=== PATIENT | male | born 1980 | race Caucasian/White ===

== ENCOUNTER 2019-05-19 15:16 | Emergency (ER) | payer SELFPAY ==
[2019-05-19] MEDS: HYDROCODONE/APAP (5/325) TAB PO (19:28)
== END 2019-05-19 22:58 | disposition home or self-care (01) ==
LOC: FTE 15:16
DX: S05.02XA Injury of conjunctiva and corneal abrasion without foreign body, left eye, initial encounter (principal); S60.221A Contusion of right hand, initial encounter; R51 Headache; Y04.2XXA Assault by strike against or bumped into by another person, initial encounter
CPT/HCPCS: 70450; 70480; 73130-RT; 99284-25